=== PATIENT | female | born 1985 | race Caucasian/White ===

== ENCOUNTER 2024-02-16 13:55 | Outpatient (OUT) | payer OTHER, SELFPAY ==
--- NOTE | 2024-02-16 | XR_ITS ---
The [address] [address] Patient Name: DANE YOST MRN: [id number] date: 1985 Sex: F Assigned Patient Location: Current Patient Location: Accession/Order Number: [id number] Exam Date: 02/16/2024 13:57 Report Date: 02/17/2024 07:16 At the request of: LUAN MASSEY Procedure: XR foot TANYA min 3V EXAMINATION: XR foot TANYA min 3V HISTORY: BILATERAL FOOT PAIN COMPARISON: No relevant comparison available. FINDINGS: RIGHT FINDINGS: BONES: No acute fracture or dislocation. Moderate enthesopathic spurring of the calcaneus at the Achilles and plantar insertions SOFT TISSUES: Negative. No visible soft tissue swelling. OTHER: Negative. LEFT FINDINGS: BONES: No acute fracture or dislocation. Moderate enthesopathic spurring of the calcaneus at the Achilles and plantar insertions SOFT TISSUES: Negative. No visible soft tissue swelling. OTHER: Negative. XR/XR foot TANYA min 3V IMPRESSION: RIGHT CONCLUSION: Calcaneal enthesopathy LEFT CONCLUSION: Calcaneal enthesopathy Electronically authenticated by: VALERIY CHACON Date: 02/17/2024 07:16
== END 2024-02-16 13:56 | disposition home or self-care (01) ==
LOC: EC 13:55
PROVIDERS: Family Provider Family Medicine; Visit Provider Podiatrist Foot & Ankle Surgery
DX: M79.671 Pain in right foot (principal); M79.672 Pain in left foot; M77.32 Calcaneal spur, left foot; M77.31 Calcaneal spur, right foot
CPT/HCPCS: 73630

== ENCOUNTER 2024-11-14 13:51 | Outpatient (OUT) | payer OTHER, SELFPAY ==
--- NOTE | 2024-11-14 13:57 | ECG_ITS ---
The [facility] Test Date: 2024-11-14 Pat Name: Sophia Mendiola Department: Room: - Gender: Female [employer]: : 1985 Requested By: LUAN MASSEY Order Number: [id number] Reading MD: CORINNE KENDRICK Measurements Intervals [place] Rate: 58 P: 40 DC: 147 QRS: 57 QRSD: 105 T: 46 QT: 426 QTc: 420 Interpretive Statements SINUS BRADYCARDIA WITH SINUS ARRHYTHMIA No previous ECG available for comparison Electronically Signed On 11-14-2024 20:48:57 EST by CORINNE KENDRICK
--- NOTE | 2024-11-14 14:40 | P.GSHP_ITS ---
History of Present Illness History of Present Illness Chief complaint: plantar fasciitis right foot Narrative: Patient presents for presurgical testing with a chief complaint of right foot pain. The patient states she has had this pain for years, she did have right foot surgery in 2018 which did help, but over the past 6 months she has developed severe right heel pain, right knee pain, and she also suffers with low back pain. She has tried injections, NSAIDs, physical therapy, activity modification, and shoe inserts with no relief of her symptoms. She denies numbness, tingling, weakness, or any other complaints. Review of Systems ROS Narrative REVIEW OF SYSTEMS: Negative except as stated in HPI, ten or more systems reviewed. Constitutional: No fever, chills, weakness ENT: No sore throat or epistaxis Cardiovascular: No chest pain or palpitations Respiratory: No shortness of breath, cough, or wheezing Gastrointestinal: No abdominal pain, diarrhea, or vomiting Genitourinary: No dysuria or hematuria Neurological: No numbness, tingling, weakness, or headache Psychiatric: No mood changes [facility] Medical History (Updated 11/14/24 @ 14:25 by Zoe Wang NP) Knee pain ?M25.569 - Pain in unspecified knee (ICD-10) Sleep apnea ?G47.30 - Sleep apnea, unspecified (ICD-10) Migraine ?G43.909 - Migraine, unspecified, not intractable, without status migrainosus (ICD-10) IBS (irritable bowel syndrome) ?K58.9 - Irritable bowel syndrome, unspecified (ICD-10) Constipation ?K59.00 - Constipation, unspecified (ICD-10) Thyroid nodule ?E04.1 - Nontoxic single thyroid nodule (ICD-10) Equinus contracture of right ankle ?M24.571 - Contracture, right ankle (ICD-10) Hypothyroid ?E03.9 - Hypothyroidism, unspecified (ICD-10) GERD (gastroesophageal reflux disease) ?K21.9 - Gastro-esophageal reflux disease without esophagitis (ICD-10) Lumbago with sciatica ?M54.40 - Lumbago with sciatica, unspecified side (ICD-10) Lymphedema ?I89.0 - Lymphedema, not elsewhere classified (ICD-10) Contracture, left ankle ?M24.572 - Contracture, left ankle (ICD-10) Contracture, right ankle ?M24.571 - Contracture, right ankle (ICD-10) Hypertension ?I10 - Essential (primary) hypertension (ICD-10) Right foot pain ?M79.671 - Pain in right foot (ICD-10) Plantar fascial fibromatosis of right foot ?M72.2 - Plantar fascial fibromatosis (ICD-10) Surgical History (Updated 11/14/24 @ 14:23 by Zoe Wang NP) History of foot surgery ?Z98.890 - Other specified postprocedural states (ICD-10) H/O nasal septoplasty ?Z98.890 - Other specified postprocedural states (ICD-10) H/O section ?Z98.891 - History of uterine scar from previous surgery (ICD-10) History of cholecystectomy ?Z90.49 - Acquired absence of other specified parts of digestive tract (ICD- 10) H/O partial thyroidectomy ?E89.0 - Postprocedural hypothyroidism (ICD-10) Family History (Updated 11/14/24 @ 14:23 by Zoe Wang NP) Other Family history of breast cancer Family history of diabetes mellitus Family history of hypertension Family history of myocardial infarction Heart disease Social History (Updated 11/14/24 @ 14:20 by Zoe Wang NP) Within the past year, how often did you have a drink containing alcohol: never Score interpretation: A score less than 3 is consistent with normal alcohol consumption. Smoking status: Never smoker Non-prescribed substance use: denies use Previous occupational history: [employer] Highest level of school completed/degree received: high school graduate Meds Home Medications and Allergies Home Medications ?Medication ?Instructions ?Recorded ?Confirmed ?Type etodolac 400 mg tablet 400 mg PO Q12H 11/14/24 11/14/24 History levonorgestrel 20.4 mcg/24 hr (up 1 device intrauterine ONCE 11/14/24 11/14/24 History to 8 yrs) 52 mg intrauterine device (Liletta) levothyroxine 50 mcg tablet 50 mcg PO DAILY 11/14/24 11/14/24 History losartan 50 mg tablet 50 mg PO DAILY 11/14/24 11/14/24 History naproxen 500 mg tablet 500 mg PO Q12H 11/14/24 11/14/24 History pantoprazole 40 mg tablet,delayed 40 mg PO DAILY 11/14/24 11/14/24 History release semaglutide 0.25 mg or 0.5 mg (2 0.25 mg subcut QWEEK 11/14/24 11/14/24 History mg/1.5 mL) subcutaneous pen injector (Ozempic) sumatriptan succinate 100 mg tablet 100 mg PO Q2H PRN migraine headache 11/14/24 11/14/24 History Allergies Allergy/AdvReac Type Severity Reaction Status Date / Time chromium Allergy Rash Verified 11/14/24 14:19 cobalt Allergy Rash Verified 11/14/24 14:19 lead Allergy Rash Verified 11/14/24 14:19 nickel Allergy Rash Verified 11/14/24 14:19 hydromorphone (From Dilaudid) AdvReac Vomiting Verified 11/14/24 14:15 Exam Narrative Exam Narrative: Constitutional: Awake, alert, comfortable, well-appearing, nontoxic, interactive, vital signs as charted Head: Normocephalic, atraumatic Neck: Supple, normal appearance, normal range of motion, no meningeal signs, no lymphadenopathy Respiratory: No respiratory distress, breath sounds clear Cardiovascular: Regular rate and rhythm, strong and regular heart tones Musculoskeletal: Antalgic gait, severe lymphedema bilateral lower extremities, pain with palpation of the plantar aspect of the medial instep of right foot, good capillary refill, sensation intact Skin: No rashes or induration, no lesions, only visible skin inspected Neuro: No neurological deficits, normal sensation Psychiatric: Oriented ?3, normal affect Assessment and Plan Assessment and Plan (1) Plantar fascial fibromatosis of right foot: (2) Right foot pain: Plan Right endoscopic plantar fasciotomy scheduled with Dr. Cintron November 25, 2024.
[2024-11-14 15:08] LABS: Anion Gap 11.2; BUN Creatinine Ratio 21.2; Calcium 9.5 mg/dL (8.5-10.1); Carbon Dioxide 27.8 mmol/L (21.0-32.0); Chloride 105 mmol/L (98-107); Estimated GFR (African America >60 (>=60 mL/min/1.73m^2); Estimated GFR (Non-African Ame 51 (>=60 mL/min/1.73m^2); Glucose 93 mg/dL (74-106); Sodium 140 mmol/L (136-145)
== END 2024-11-14 13:52 | disposition home or self-care (01) ==
PROVIDERS: Family Provider Family Medicine; PCP Student in an Organized Health Care Education/Training Program; Visit Provider Podiatrist Foot & Ankle Surgery
DX: Z01.810 Encounter for preprocedural cardiovascular examination (principal); Z01.812 Encounter for preprocedural laboratory examination; Z01.818 Encounter for other preprocedural examination; M72.2 Plantar fascial fibromatosis
CPT/HCPCS: 80048; 93005; G0463